=== PATIENT | female | born 1970 | race Caucasian/White ===

== ENCOUNTER 2019-11-24 16:09 | Outpatient (REF) | payer OTHER, SELFPAY ==
[2019-11-27 16:56] LABS: IgA 269 mg/dL (47-310); IgG 1003 mg/dL (600-1640); IgM 81 mg/dL (50-300)
== END 2019-11-24 16:10 | disposition home or self-care (01) ==
LOC: HO.LAB 16:09
PROVIDERS: PCP Internal Medicine; Visit Provider Psychiatry & Neurology Neurology
DX: G62.9 Polyneuropathy, unspecified (principal)
CPT/HCPCS: 36415; 82784; 86334

== ENCOUNTER 2020-12-02 12:31 | Outpatient (REF) | payer OTHER, SELFPAY ==
[2020-12-02 14:02] LABS: MANUAL DIFF FLAG NO
[2020-12-02 14:04] LABS: Hematocrit 40.7 % (37-47); Imm Gran Abs Auto 0.02 X10*3/uL (0.00-0.03); Imm Gran Pct Auto 0.3 % (0.0-0.4); Lymphocytes Absolute Auto 1.9 X10*3/uL (1.2-4.9); Lymphocytes Percent Auto 31.6 % (20-40); Mean Corpuscular HGB Conc 31.9 g/dl (31.0-35.0); Mean Corpuscular Volume 90.8 fL (80-98); Mean Platelet Volume 9.7 fL (9.4-12.3); Monocytes Absolute Auto 0.4 X10*3/uL (0.1-1.2); Monocytes Percent Auto 7.1 % (2-11); Neutrophils Absolute Auto 3.6 X10*3/uL (2.0-8.3); Platelet Count 336 X10*3/uL (160-400); Red Blood Count 4.48 X10*6/uL (4.20-5.50); Red Cell Distribution Width 13.1 % (11.0-16.0); White Blood Count 5.9 X10*3/uL (4.8-10.8)
[2020-12-02 14:11] LABS: Estimated Average Glucose 117 mg/dL; Hemoglobin A1c % 5.7 %
[2020-12-02 14:17] LABS: Appearance Urine CLEAR; Color Urine YELLOW; Glucose Urine UA 100 MG/DL (NEG); Leukocyte Esterase Urine NEG (NEG); Nitrite Urine NEG (NEG); Specific Gravity - Urine 1.015 (1.005-1.025); Urine Blood NEG (NEG); Urine Ketones NEG (NEG); Urine Protein NEG (NEG-TRACE)
[2020-12-02 14:40] LABS: Alanine Aminotransferase 10 U/L (0-31); Albumin Level 4.2 g/dL (3.5-5.0); Alkaline Phosphatase 107 U/L (39-117); Anion Gap 14 (12-20); Aspartate Amino Transferase 18 U/L (5-31); Bilirubin Total 0.4 mg/dL (0.0-1.0); Blood Urea Nitrogen 10 mg/dL (9-16); Calcium 8.9 mg/dL (8.4-10.2); Carbon Dioxide 26 mmol/L (22-29); Chloride 106 mmol/L (96-108); Cholesterol 180 mg/dL; Estimated Glomerular Filt Rate > 60; Glucose Random 82 mg/dL (60-115); Potassium 4.9 mmol/L (3.3-5.1); Sodium 141 mmol/L (135-145)
[2020-12-02 14:47] LABS: Creatinine Urine 40.73 mg/dL; Microalbum/Creatinine Ratio Ur 68.7 ug/mg cr
[2020-12-02 15:03] LABS: Free T4 (Free Thyroxine) 1.13 ng/dL (0.71-1.85); Thyroid Stimulating Hormone 1.61 uIU/mL (0.32-4.0)
== END 2020-12-02 12:32 | disposition home or self-care (01) ==
LOC: HO.10HDL 12:31
PROVIDERS: Visit Provider Internal Medicine
DX: E03.9 Hypothyroidism, unspecified (principal); E11.9 Type 2 diabetes mellitus without complications; R30.0 Dysuria
CPT/HCPCS: 36415; 80053; 81003; 82043; 82465; 83036; 84439; 84443; 85025; 87086; 87088; 87186

== ENCOUNTER 2021-04-14 10:42 | Outpatient (REF) | payer OTHER, SELFPAY ==
[2021-04-14 13:45] LABS: MANUAL DIFF FLAG NO
[2021-04-14 14:11] LABS: Hematocrit 38.1 % (37.0-47.0); Hemoglobin 12.2 g/dl (12.0-16.0); Imm Gran Abs Auto 0.01 X10*3/uL (0.00-0.03); Imm Gran Pct Auto 0.2 % (0.0-0.4); Lymphocytes Absolute Auto 1.5 X10*3/uL (1.2-4.9); Lymphocytes Percent Auto 30.1 % (20-40); Mean Corpuscular Hemoglobin 28.8 pg (27.0-33.0); Mean Corpuscular Volume 89.9 fL (80.0-98.0); Mean Platelet Volume 9.8 fL (9.4-12.3); Monocytes Absolute Auto 0.4 X10*3/uL (0.1-1.2); Monocytes Percent Auto 7.7 % (2-11); Neutrophils Absolute Auto 3.1 x10*3/uL (2.0-8.3); Platelet Count 400 X10*3/uL (160-400); Red Blood Count 4.24 X10*6/uL (4.20-5.50); Red Cell Distribution Width 13.2 % (11.0-16.0)
[2021-04-14 14:18] LABS: C Reactive Protein 0.32 mg/dL (< or = 0.50); Rheumatoid Factor < 15.0 IU/mL (<15.0)
[2021-04-14 14:39] LABS: Vitamin D 25-OH Total 43.8 ng/mL (>30)
[2021-04-14 14:53] LABS: Folate 15.7 ng/mL (> or = 4.0)
[2021-04-14 15:02] LABS: Erythrocyte Sedimentation Rate 9 MM/HR (0-20)
[2021-04-15 12:52] LABS: Anti Nuclear Antibody Screen NEGATIVE (NEGATIVE)
== END 2021-04-14 10:43 | disposition home or self-care (01) ==
LOC: HO.10HDL 10:42
PROVIDERS: Visit Provider Internal Medicine
DX: E11.9 Type 2 diabetes mellitus without complications (principal); E06.9 Thyroiditis, unspecified; M25.50 Pain in unspecified joint
CPT/HCPCS: 36415; 82306; 82550; 82746; 85025; 85652; 86038; 86039; 86140; 86431; 87071; 87205

== ENCOUNTER 2021-04-20 09:53 | Outpatient (REF) | payer OTHER, SELFPAY ==
[2021-04-20 11:25] LABS: Vitamin B12 > 2000 pg/mL (200-900)
[2021-04-20 11:26] LABS: Free T4 (Free Thyroxine) 1.23 ng/dL (0.71-1.85); Thyroid Stimulating Hormone 1.39 uIU/mL (0.32-4.0)
[2021-04-21 06:46] LABS: Triiodothyronine T3 Free 3.1 pg/mL (2.3-4.2)
== END 2021-04-20 09:54 | disposition home or self-care (01) ==
LOC: HO.10HDL 09:53
PROVIDERS: PCP Internal Medicine; Visit Provider Internal Medicine
DX: R53.83 Other fatigue (principal); E11.9 Type 2 diabetes mellitus without complications; M79.10 Myalgia, unspecified site
CPT/HCPCS: 36415; 82607; 84439; 84443; 84481

== ENCOUNTER → 2021-05-05 12:39 | Outpatient (BNVA) | payer OTHER, SELFPAY | PROVIDERS: PCP Internal Medicine; Visit Provider Surgery | DX: Z13.89 Encounter for screening for other disorder (principal) ==

== ENCOUNTER 2021-05-12 10:04 | Outpatient (REF) | payer OTHER, SELFPAY | END 2021-05-12 10:05 | disposition home or self-care (01) | LOC: HO.LAB 10:04 | PROVIDERS: PCP Internal Medicine; Referring Provider Internal Medicine; Visit Provider Surgery | DX: L72.0 Epidermal cyst (principal) | CPT/HCPCS: 11402; 88304 ==

== ENCOUNTER → 2021-05-19 11:00 | Outpatient (BNVA) | payer OTHER, SELFPAY | PROVIDERS: PCP Internal Medicine; Visit Provider Surgery | DX: Z13.89 Encounter for screening for other disorder (principal) ==

== ENCOUNTER 2022-12-14 10:32 | Outpatient (REF) | payer OTHER, SELFPAY ==
[2022-12-14 10:52] LABS: MANUAL DIFF FLAG NO
[2022-12-14 10:57] LABS: Hematocrit 40.4 % (37.0-47.0); Imm Gran Abs Auto 0.01 X10*3/uL (0.00-0.03); Imm Gran Pct Auto 0.2 % (0.0-0.4); Lymphocytes Absolute Auto 1.7 X10*3/uL (1.2-4.9); Lymphocytes Percent Auto 26.9 % (20-40); Mean Corpuscular HGB Conc 32.2 g/dl (31.0-35.0); Mean Corpuscular Hemoglobin 28.2 pg (27.0-33.0); Mean Corpuscular Volume 87.6 fL (80.0-98.0); Mean Platelet Volume 8.9 fL (9.4-12.3); Monocytes Absolute Auto 0.5 X10*3/uL (0.1-1.2); Monocytes Percent Auto 8.4 % (2-11); Neutrophils Absolute Auto 4.1 x10*3/uL (2.0-8.3); Neutrophils Percent Auto 64.5 % (45-73); Platelet Count 357 X10*3/uL (160-400); Red Blood Count 4.61 X10*6/uL (4.20-5.50); Red Cell Distribution Width 13.5 % (11.0-16.0); White Blood Count 6.4 X10*3/uL (4.8-10.8)
[2022-12-14 11:59] LABS: Alanine Aminotransferase 11 U/L (0-31); Albumin Level 4.2 g/dL (3.5-5.0); Alkaline Phosphatase 115 U/L (39-117); Anion Gap 11 (12-20); Aspartate Amino Transferase 16 U/L (5-31); Bilirubin Total 0.3 mg/dL (0.0-1.0); Blood Urea Nitrogen 14 mg/dL (9-16); Calcium 9.1 mg/dL (8.4-10.2); Carbon Dioxide 29 mmol/L (22-29); Chloride 105 mmol/L (96-108); Estimated Glomerular Filt Rate > 60; Glucose Random 172 mg/dL (60-115); Potassium 4.6 mmol/L (3.3-5.1); Sodium 140 mmol/L (135-145); Total Protein 7.5 g/dL (6.5-8.0)
== END 2022-12-14 10:33 | disposition home or self-care (01) ==
LOC: HO.10HDL 10:32
PROVIDERS: Visit Provider Internal Medicine
DX: E11.9 Type 2 diabetes mellitus without complications (principal); E03.9 Hypothyroidism, unspecified; Z79.4 Long term (current) use of insulin
CPT/HCPCS: 36415; 80053; 85025

== ENCOUNTER 2024-06-13 15:40 | Outpatient (AMB) | payer OTHER, SELFPAY ==
--- NOTE | 2024-06-13 13:07 | A.OFFPC_ITS ---
Vital Signs 06/13/24 16:14 Height 5 ft Weight 78.925 kg BMI 34.0 BP 110/82 Respiration 16 Pulse 92 Temp 99.0 F Temp Source Oral Pulse Oximetry (%) 96 Oxygen Delivery Method Room Air Intake Visit Reasons: Routine - see comments Educational Audiologist Required: No Accompanied by: Self / Same As Patient Allergies lisinopril Allergy (Intermediate, Verified 06/13/24 16:15) Swelling penicillin V Allergy (Unknown, Verified 06/13/24 16:11) Unknown Penicillins [PENICILLINS] Allergy (Unknown, Verified 06/13/24 16:11) RASH Sulfa (Sulfonamide Antibiotics) [SULFA(SULFONAMIDE ANTIBIOTICS)] Allergy (Unknown, Verified 06/13/24 16:11) NAUSEA AND VOMITING sulfur Allergy (Unknown, Verified 06/13/24 16:11) Unknown Tobacco use date assessed: 06/13/24 Dental Screening Dental Screen Date: 06/13/24 Did you have a dental visit in the last 12 months?: Yes Did you have a dental problem in the last 6 months where you did not have access to dental care?: No Was dental information given to patient?: Patient has dentist HPI HPI Comments History of Present Illness Details 53-year-old female with history of type 1 diabetes, hypothyroidism, vitamin B12 deficiency presents to the office today for routine follow-up. She follows with [facility] [place] [facility] and reports last hemoglobin A1c was 7.9%. She does utilize an insulin pump. Diabetic eye exams are up-to-date. 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 She is reporting polyarthralgia which has been longstanding, particularly in the wrists, hips knees. She also tells me that her daughter has been quite sick and she needs [facility] paperwork filled out intermittently for juan rock's appointments. Reportedly, her daughter had a labral tear in her hip requiring surgical intervention and developed bilateral DVT of the lower extremities and pulmonary embolism following the surgery. She then had multiple syncopal episodes and as a result has frequent doctor's appointments. She has no other complaints today. [facility] Medical History (Updated 06/13/24 @ 16:56 by KENDALL Holder) Type 1 diabetes Hypothyroidism Epidermal cyst Hypertension Surgical History H/O wrist surgery H/O section Family History (Updated 06/13/24 @ 16:21 by DARLENE Ortiz) Mother Thyroid disease Father No problems noted. Social History Housing: House Alcohol intake: current Patient Tobacco Use Status: Never used Tobacco service: No Current occupational status: employed Cognitive needs: No Hearing needs: No Vision needs: Yes (Rx glasses) Questionnaire PHQ-9 Over the last 2 weeks, how often have you been bothered by any of the following problems? 1. Little interest or pleasure in doing things: not at all 2. Feeling down, depressed, or hopeless: several days 3. Trouble falling or staying asleep, or sleeping too much: nearly every day 4. Feeling tired or having little energy: nearly every day 5. Poor appetite or overeating: not at all 6. Feeling bad about yourself - or that you are a failure or have let yourself or your family down: several days 7. Trouble concentrating on things, such as reading the newspaper or watching television: several days 8. Moving or speaking so slowly that other people could have noticed. Or the opposite - being so fidgety or restless that you have been moving around a lot more than usual: not at all 9. Thoughts that you would be better off or of hurting yourself in some way: not at all Total score: 9 Source: Developed by Drs. Tony Wilder, Noemy Olivares, Mario Alberto Whipple and colleagues, with an educational flor from [employer]. Thrive Questionnaire Date Thrive assessed: 06/13/24 I am a: Patient What is your living situation today?: I have a place to live, but I am worried about losing it in the future Within the past 12 months, did the food you bought not last and you didn't have the money to get more?: Never true Within the past 12 months, did you worry whether your food would run out before you got money to buy more?: Never true Do you have trouble paying for medicines?: No Do you have trouble getting transportation to medical appointments?: No Do you have trouble paying your heating and electricity bill?: No Do you have trouble taking care of your child, family member or friend?: No Do you have trouble with day-to-day activities such as bathing, preparing meals, shopping, managing finances, etc.?: No Are you currently unemployed and looking for a job?: No Are you interested in more education?: No Please select the resources that you would like help with: None THRIVE Score: 1 AUDIT C Alcohol Use Questionnaire (AUDIT-C) 1. How often do you have a drink containing alcohol?: Never Total Score: 0 HOLLIE-7 AMB Questionnaire HOLLIE-7 Date HOLLIE - 7 assessed: 06/13/24 Feeling nervous, anxious, or on edge: 3 = Nearly every day Not being able to stop or control worryin = Nearly every day Worrying too much about different things: 3 = Nearly every day Trouble relaxin = Nearly every day Being so restless that it is hard to sit still: 3 = Nearly every day Becoming easily annoyed or irritable: 3 = Nearly every day Feeling afraid as if something awful might happen: 3 = Nearly every day Total HOLLIE-7 score (0-4 normal; 5-9 mild; 10-14 moderate; 15-21 severe): 21 Source: Developed by Drs. Tony Wilder, Noemy Olivares, Mario Alberto Whipple and colleagues, with an educational flor from [employer]. Review of Systems Const All systems reviewed & are unremarkable except as noted in HPI and below Physical exam (Primary Care) Vital Signs: Last Vital Signs Temp 99.0 F 06/13/24 16:14 Pulse 92 06/13/24 16:14 Resp 16 06/13/24 16:14 BP 110/82 06/13/24 16:14 Pulse Ox 96 06/13/24 16:14 Oxygen Delivery Method Room Air 06/13/24 16:14 BMI result Body Mass Index 34.0 Tobacco/Smoking Status: Tobacco use Status Tobacco use date assessed 06/13/24 06/13/24 16:23 Patient Tobacco Use Status Never used Tobacco 06/13/24 16:23 PHQ-9: PHQ-9 Score PHQ-9: Total score 9 06/13/24 16:37 Thrive Assessment: Date of Thrive Assessment Date Thrive assessed 06/13/24 06/13/24 16:23 Const Other: Constitutional - Awake and Alert, No apparent distress Eyes - PERRL Cardiovascular - S1S2, RRR, No edema Respiratory - Normal lung expansion, Normal respiratory effort, No respiratory distress, CTA bilaterally Extremities - no calf tenderness bilaterally, no swelling Skin - Warm/Dry Neurological - Alert & oriented x3 Psychological - tearful Coding Level of Care Code New Pt Level 4 (44388) Complex EM visit Add On G2211 Diagnoses Hypertension I10 Hypothyroidism E03.9 Type 1 diabetes E10.9 Polyarthralgia M25.50 Assessment & Plan Assessment & Plan (1) Hypertension: Code(s): I10 - Essential (primary) hypertension Category: Medical Plan: Hypertension controlled with blood pressure 110/82. No longer on antihypertensive therapy. Continue low-sodium diet. (2) Hypothyroidism: Code(s): E03.9 - Hypothyroidism, unspecified Category: Medical Plan: TSH ordered. Continue levothyroxine 50 mcg daily. Follow-up with endocrinology as scheduled. (3) Type 1 diabetes: Code(s): E10.9 - Type 1 diabetes mellitus without complications Category: Medical Plan: Last hemoglobin A1c 7.9%, uncontrolled. Updated hemoglobin A1c ordered. Continue use of insulin pump and follow-up with endocrinology as scheduled. Diabetic eye exam up-to-date. Continue with diabetic diet. (4) Polyarthralgia: Code(s): M25.50 - Pain in unspecified joint Category: Medical Plan: Given history of type 1 diabetes, she is predisposed to additional autoimmune conditions. TORITO, rheumatoid factor, CRP, ESR ordered. She is referred to rheumatology for further evaluation and management. Continue Tylenol ibuprofen. Plan Follow-up in 4 months. Follow-up with endocrinology. Labs ordered to be completed today. Orders: Orders Basic Metabolic Panel Today E03.9 - Hypothyroidism, unspecified, E11.9 - Type 2 diabetes mellitus without complications, I10 - Essential (primary) hypertension Hemoglobin A1c Today E03.9 - Hypothyroidism, unspecified, E11.9 - Type 2 diabetes mellitus without complications, I10 - Essential (primary) hypertension TSH reflex Free T4 Today E03.9 - Hypothyroidism, unspecified, E11.9 - Type 2 diabetes mellitus without complications, I10 - Essential (primary) hypertension Vitamin B12 Today E53.8 - Deficiency of other specified B group vitamins Rheumatoid Factor Today M25.50 - Pain in unspecified joint C Reactive Protein Today M25.50 - Pain in unspecified joint Complete Blood Count Auto Diff Today E03.9 - Hypothyroidism, unspecified, E11.9 - Type 2 diabetes mellitus without complications, I10 - Essential (primary) hypertension Lipid Panel Today E03.9 - Hypothyroidism, unspecified, E11.9 - Type 2 diabetes mellitus without complications, I10 - Essential (primary) hypertension TORITO Reflex Titer and Pattern Today M25.50 - Pain in unspecified joint Erythrocyte Sedimentation Rate Today M25.50 - Pain in unspecified joint Referrals Rheumatology Referral M25.50 - Pain in unspecified joint
[2024-06-13 16:14] VITALS: BP 110/82; PULSE 92; RESP 16; TEMP 37.2; O2SAT 96; BMI 34.0
== END 2024-06-13 16:52 | disposition home or self-care (01) ==
LOC: HO.HMCHD 15:40
PROVIDERS: PCP Physician Assistant; Visit Provider Physician Assistant
DX: I10 Essential (primary) hypertension (principal); E03.9 Hypothyroidism, unspecified; E10.9 Type 1 diabetes mellitus without complications; M25.50 Pain in unspecified joint

== ENCOUNTER 2024-07-22 12:32 | Outpatient (REF) | payer OTHER, SELFPAY ==
[2024-07-22 13:12] LABS: MANUAL DIFF FLAG NO
[2024-07-22 13:15] LABS: Hematocrit 35.1 % (37.0-47.0); Imm Gran Abs Auto 0.03 X10*3/uL (0.00-0.03); Imm Gran Pct Auto 0.5 % (0.0-0.4); Lymphocytes Absolute Auto 1.8 X10*3/uL (1.2-4.9); Lymphocytes Percent Auto 29.1 % (20-40); Mean Corpuscular HGB Conc 31.3 g/dl (31.0-35.0); Mean Corpuscular Hemoglobin 26.6 pg (27.0-33.0); Monocytes Absolute Auto 0.4 X10*3/uL (0.1-1.2); Monocytes Percent Auto 6.3 % (2-11); Neutrophils Absolute Auto 3.9 x10*3/uL (2.0-8.3); Neutrophils Percent Auto 64.1 % (45-73); Platelet Count 384 X10*3/uL (160-400); Red Blood Count 4.13 X10*6/uL (4.20-5.50); Red Cell Distribution Width 14.6 % (11.0-16.0)
[2024-07-22 13:22] LABS: Estimated Average Glucose 174 mg/dL; Hemoglobin A1c % 7.7 % (<6.0); Total Hemoglobin (HGBA1C) 2897.7965 umol/L
[2024-07-22 13:38] LABS: Rheumatoid Factor < 13.0 IU/mL (<15.0)
[2024-07-22 13:42] LABS: Anion Gap 11 (12-20); Blood Urea Nitrogen 16 mg/dL (9-16); C Reactive Protein 0.58 mg/dL (< or = 0.50); Carbon Dioxide 26 mmol/L (22-29); Chloride 106 mmol/L (96-108); Cholesterol 190 mg/dL (<200); Estimated Glomerular Filt Rate > 60; Glucose Random 304 mg/dL (60-115); HDL Cholesterol 84 mg/dL (>40); LDL Cholesterol Calculated 91 mg/dL (<100); Potassium 4.2 mmol/L (3.3-5.1); Sodium 139 mmol/L (135-145); Triglycerides 75 mg/dL (<150)
[2024-07-22 13:50] LABS: Vitamin B12 1232 pg/mL (200-900)
[2024-07-22 13:53] LABS: Erythrocyte Sedimentation Rate 16 MM/HR (0-20); TSH reflex Free T4 2.13 uIU/mL (0.32-4.0)
--- OUTSIDE RECORDS SUMMARY | 2024-07-22 14:10 | XMS_ITS | Patient Health Record ---
Author Organization [facility] Address [address] [place] [address] Care Team Providers Care Director Of Global Marketing Name Role Phone Ray Yoder MD Primary Care Provider Jeanette Jenny Casarez Unavailable [phone] Allergies Allergen (clinical drug ingredient) Drug/Non Drug Allergy documented on EMR Reaction Allergy Type Onset Date Status sulfa rash Drug Allergy Active Penicillin rash Drug Allergy Active Reason For Referral No Information Medications Medication SIG (Take, Route, Fr equency, Duration) Notes Start Date End Date Status Calcium 600 MG 1 tablet with meals Orally Twice a day for 30 day(s) Active ZyrTEC Allergy 10 MG 1 tablet Orally Onc e a day for 30 day(s) Active Ogestrel 0.5-50 MG-MCG 1 tablet Orally O nce a day for 28 day(s) Active predniSONE 1MG 1 tablet with food o r milk Orally Once a day for 30 day(s) Active Feldene 20 MG 1 capsule with food Orally Once a day for 30 day(s) 06/21/2011 Active Physical Therapy 3-4x per week for 3-4 weeks 10/29 Active Benadryl 25 MG 1 capsule Orally every 6 hrs Active Problems Problem Type SNOMED Code ICD Code Onset Dates Problem Status W/U Status Risk Notes Problem Bursitis (84031039) Bursitis (727.3) Active confirmed Problem Myositis (62750530) Myositis (729.1) Active confirmed Problem Pain in limb (78796256) Pain in Limb (729.5) Active confirmed Problem Plantar fasciitis (221526211) Plantar Fasciitis (728.71) Active confirmed Problem Calcaneal spur (28103603) Calcaneal spur (726.73) Active confirmed Plan Of Treatment Pending Test Test Name Order Date ,[id number] TENDON SHEATH/LIGAMENT 0 08/01/2011,[id number] TENDON SHEATH/LIGAMENT 0 08/16/2011 [id number] 3mg 08/16/2011 Insurance Providers Payer Name Payer Address Payer Phone Subscriber Number Group Number Insured Name Patient Relationship to Insured Coverage Start Date Coverage End Date [facility] [address] [place] [address] [id number]IN Spouse - patient is the spouse of the insured Medical (General) History Medical History History ICD Code broken bones thyroid disorder chicken pox Surgical History Surgery Date(Month/Year) section 07/2000
[2024-07-24 11:49] LABS: Anti Nuclear Antibody Screen NEGATIVE (NEGATIVE)
== END 2024-07-22 12:33 | disposition home or self-care (01) ==
LOC: HO.10HDL 12:32
PROVIDERS: Visit Provider Physician Assistant
DX: M25.50 Pain in unspecified joint (principal)
CPT/HCPCS: 36415; 80048; 80061; 82607; 83036; 84443; 85025; 85652; 86038; 86140; 86431

== ENCOUNTER 2024-09-20 06:54 | Emergency (ER) | payer OTHER, SELFPAY ==
--- NOTE | ~2024-09-20 | CT_ITS ---
CLINICAL HISTORY: right hip injury CT pelvis without IV contrast. 3D reconstructions Comparison: CR - XR HIP RT W PEL1V - 09/20/24 07:58 EDT Findings: Anterior and posterior acetabular hodgson demonstrated no fractures. Anterior and posterior acetabular columns are intact. Bilateral hips remain congruent with no evidence of marginal impaction or intra-articular bone fragments. No femoral head, neck, trochanteric or proximal shaft fractures. No pelvic avulsion fractures/apophysitis. Pubic rami are intact. No diastases of the symphysis pubis. No sacral fractures. Normal sacroiliac joints. Sacrococcygeal joint is intact. Soft tissue pelvis:No pelvic hematoma/free fluid. Normal distention of the urinary bladder No iliopsoas/greater trochanteric bursitis. Fascial planes are preserved. No foreign body is demonstrated. Impression: 1. No pelvic fractures are demonstrated. Normal congruence of the femoroacetabular joints. No hip fractures. 2. No pelvic hematoma or free fluid. This document has been electronically signed by: Rodrigo Limon MD on 09/20/2024 11:51:11
--- NOTE | ~2024-09-20 | XR_ITS ---
CLINICAL HISTORY: right hip trauma,pain 2 views right hip. Single AP pelvis. Comparison: None Findings: No fractures, subluxations or dislocations. Normal congruency of the hip joint. SI joints pubic rami and symphysis pubis intact. No bony arthritic changes. Bone mineralization and soft tissues within normal limits. No radiopaque foreign body. Impression: 1. Normal right hip This document has been electronically signed by: Rodrigo Limon MD on 09/20/2024 08:25:48
[2024-09-20 07:00] VITALS: BP 156/98; PULSE 102; O2SAT 98
[2024-09-20 07:01] VITALS: BP 127/77; PULSE 99; RESP 19; TEMP 36.2; O2SAT 95; BMI 32.2
[2024-09-20 07:14] VITALS: BP 127/77; PULSE 99; RESP 19; TEMP 36.2; O2SAT 95
--- NOTE | 2024-09-20 07:26 | PC.NURSE ---
Pt with no visible injuries noted or reported at this time; pt actively experiencing R upper leg spasms radiating into R groin; +CMS/ROM both LE's; +DP pulses bilaterally with brisk cap refill both feet; pt denies numbness in leg or any incontinence/saddle paresthesias at this time; awaiting provider for orders
--- NOTE | 2024-09-20 08:07 | ED_ITS ---
HPI - Fall General Chief Complaint: Fall Stated Complaint: PAIN/SPASM DOWN R HIP TO KNEE S/P FALL 3-4 W AGO Time Seen by Provider: 09/20/24 07:16 Source: patient, family (daughter) and EMS Mode of arrival: EMS Limitations: no limitations History of Present Illness ED Provider: HPI Narrative: 53-year-old woman who fell 4 weeks ago, when to [facility] has had unremarkable hip x-ray, seen orthopedic providers this upcoming Sunday. Has been using muscle relaxants and Advil, reports pain spasms have been increasing, she states that she has fell and had a hard time getting off the floor today. Her daughter is at bedside as well and states that she lives with her and patient has been ambulating with a walker. No fevers or chills no numbness in the groin no numbness in the lower extremities no abdominal pain reported. Related Data Home Medications ?Medication ?Instructions ?Recorded ?Confirmed cetirizine 10 mg capsule (Zyrtec) 10 mg PO DAILY PRN 0 05/05/21 05/19/21 cholecalciferol (vitamin D3) 50 50 mcg PO DAILY 05/19/21 mcg (2,000 unit) capsule cyanocobalamin (vitamin B-12) 3,000 mcg PO DAILY 05/0505/19/21 3,000 mcg capsule insulin lispro 100 unit/mL subcut 05/05/21 05/19/21 subcutaneous solution (Humalog U-100 Insulin) levothyroxine 50 mcg capsule 50 mcg PO DAILY 05/05/21 05/19/21 (Tirosint) magnesium oxide 400 mg PO DAILY 05/05/21 Previous Rx's ?Medication ?Instructions ?Recorded oxycodone 5 mg tablet 5 mg PO Q6H PRN pain #10 tab s 09/20/24 Allergies Allergy/AdvReac Type Severity Reaction Status Date / Time lisinopril Allergy Intermediate Swelling Verified 09/20/24 07:10 penicillin V Allergy Unknown Unknown Verified 09/20/24 07:10 Penicillins (PENICILLINS) Allergy Unknown RASH Verified 09/20/24 07:10 Sulfa (Sulfonamide Allergy Unknown NAUSEA AND Verified 09/20/24 07:10 Antibiotics) VOMITING (SULFA(SULFONAMIDE ANTIBIOTICS)) sulfur Allergy Unknown Unknown Verified 09/20/24 07:10 Review of Systems Constitutional: Constitutional: Reports as per [facility] Past Medical History Medical History (Updated 09/20/24 @ 08:37 by Hema Colindres DO) Type 1 diabetes Hypothyroidism Epidermal cyst Hypertension Surgical History H/O wrist surgery H/O section Family History Family History (Updated 06/13/24 @ 16:21 by DARLENE Ortiz) Mother Thyroid disease Father No problems noted. Social History Social History Housing: House Alcohol intake: current Patient Tobacco Use Status: Never used Tobacco service: No Current occupational status: employed Cognitive needs: No Hearing needs: No Vision needs: Yes (Rx glasses) Physical Exam Vital Signs: Vital Signs: Last Vital Signs Temp 97.1 F 09/20/24 07:14 Pulse 99 09/20/24 07:14 Resp 19 09/20/24 07:14 BP 127/77 09/20/24 07:14 Pulse Ox 95 09/20/24 07:14 O2 Del Method Room Air 09/20/24 07:01 BMI result Body Mass Index 32.2 Const: Other: * Gen: ?Overall well-appearing patient * Abd: ?Bowel sounds are present, no tenderness no rebound no rigidity * MSK: No tenderness along her back cervical to sacral, no paraspinal or midline tenderness, no SI tenderness, pelvis is stable, no tenderness along her ITB or greater trochanter, full range of motion of the ankle and right knee, slight pain with internal rotation most of the discomfort is over anterior proximal hip flexors without hematoma, pulsatile masses, soft compartments. * Skin: Warm, dry, intact, * Neuro: ?Alert and oriented x3, moving upper and lower extremities symmetrically, no obvious facial asymmetry noted Medications Administered Discontinued Medications Generic Name Dose Route Start Last Admin Trade Name Freq PRN Reason Stop Dose Admin Ketorolac Tromethamine 15 mg 09/20/24 07:41 09/20/24 07:46 Ketorolac Tromethamine 15 Mg/Ml Vial IVPUSH 09/20/24 07:42 15 mg ONCE ONE Administration Morphine Sulfate 4 mg 09/20/24 07:41 09/20/24 07:46 Morphine Sulfate 4 Mg/Ml Cartridge IVPUSH 09/20/24 07:42 4 mg ONCE ONE Administration Protocol Medical Decision Making Medical Decision Making [facility] Narrative: Patient is presenting with now chronic worsening pain seen her orthopedic provider in the next few days, physical examination is largely reassuring without any neurovascular deficits to suspect that this is related to spinal cord compression or infectious etiology, there are no hematomas or pulsatile masses to suspect many ongoing bleeding, I believe patient we will require further workup on outpatient basis such as pelvis or hip MRI to evaluate for labral tear, strain, she will require physical therapy and possibly guided steroid injections, she is diabetic and I think spasm is not the primary issue here but actually pain, I will start her on some steroids though she is a diabetic and she does use a pump, and pain control we will be another issue I will start with oxycodone and discontinue muscle relaxants. Her daughters at bedside, and this has been discussed with the patient and her daughter see my discharge instructions. If after being medicated the patient is still not able to walk I we will obtain CT to evaluate for occult fractures though her x-rays are reassuring Differential Diagnosis Differential Diagnoses: The differential diagnosis associated with the presentation includes (Cauda equina, sciatica, labral tear, osteochondral defect, muscle strain, DVT, arterial insufficiency, called fracture) Admission/Observation Consideration of admission/observation: Escalation of care including admission/observation considered (Depending if patient passes ambulatory or trial) 2022 Emergency Medicine Coding Guide from [employer] on 09/20/2024 All calculations should be rechecked by clinician prior to use RESULT SUMMARY: 4 Estimated Level of Service Problems: Moderate (4) Risk: High (5) Data: Moderate (4) NARRATIVE MDM: This patient's problem complexity is Moderate as patient: has an acute complicated injury requiring significant evaluation or with concern for morbidity or multiple treatment options. This patient's risk is High due to: overall presentation requiring evaluation for a potentially High-risk process. This patient's data complexity is Moderate due to: -independent interpretation of imaging or EKG INPUTS: Number and Complexity ?> 7 = 4: acute, complicated injury (g) Risk level ?> 4 = High Tests ordered ?> 1 = 1 Tests results reviewed (excluding labs) ?> 1 = 1 Prior external notes reviewed ?> 0 = 0 Assessment requiring and independent historian ?> 0 = No Independent interpretation of tests ?> 1 = Yes Discussed management/test interpretation w/external professional ?> 0 = No Independent Interpretation I performed an independent interpretation of an: Plain X-Ray (No fractures no arthritic changes no foreign bodies) Radiology Impression Discussion of test interpretation with radiology: I have reviewed the radiologis t's reading. (Negative hip) Discharge Plan Discharge Clinical Impression: Hip pain, right Patient Disposition: Home, Self-Care Instructions: Hip Pain (ED) Additional Instructions: At this point I recommend against taking any muscle relaxants, I believe you are experiencing issues related to pain control, I started him on steroids in the ER, continue steroids as per him a prescription for the next 4 days In the meantime use Tylenol 975 mg every 6 hours around the clock as you would take any other regular medication, and oxycodone 5 mg every 4-6 hours for additional pain control I would like to make sure your icing the area as high up in the groin as you can, doing heat packs as well, gentle stretches and make sure that you were also ambulatory, see your orthopedic provider on Sunday I believe you need outpatient MRI and physical therapy as this is now becoming a chronic injury that is progressively getting worse, your repeat x-ray today was unremarkable. Of course you should feel free to come back to the ER if you have any worsening issues or concerns over the weekend Prescriptions: New oxycodone 5 mg tablet 5 mg PO Q6H PRN (Reason: pain) Qty: 10 0RF Rx Instructions: Partial Fill upon patient request. No Action levothyroxine [Tirosint] 50 mcg capsule 50 mcg PO DAILY insulin lispro [Humalog U-100 Insulin] 100 unit/mL solution subcut cyanocobalamin (vitamin B-12) 3,000 mcg capsule 3,000 mcg PO DAILY cholecalciferol (vitamin D3) 50 mcg (2,000 unit) capsule 50 mcg PO DAILY magnesium oxide 400 mg magnesium tablet 400 mg PO DAILY Zyrtec 10 mg capsule 10 mg PO DAILY PRN Print Language: Turkmen
--- OUTSIDE RECORDS SUMMARY | 2024-09-20 08:12 | XMS_ITS | Clinical Summary ---
Author Organization [facility] Address [address] [facility] [address] [place] [address] Phone Care Team Providers Care Rn Utilization Management Um Name Role Phone Ray Yoder MD Primary Care Provider Allergies Active Allergy Reactions Criticality Noted Date Comments Penicillins Rash Low 08/27/2018 Sulfa (Sulfonamide Antibiotics) Nausea and/or Vomiting 08/27/2018 Medications cetirizine (ZYRTEC) 10 MG tablet Take 10 mg by mouth daily. Active cyanocobalamin, vitamin B-12, (VITAMIN B-12 ORAL) Take 2 capsules by mouth daily. Active naproxen sodium (ALEVE) 220 MG tablet Take 440 mg by mouth nightly at bedtime. Active Hospital, Clinic, or Other Facility Administered Medication Ordered Dose Route Frequency Start Date End Date Status EPINEPHrine (ADRENALIN) injection 0.3 mgIndications:Patient in clinical research study 0.3 mg IM Once as needed 12/07/2020 Active diphenhydrAMINE (BENADRYL) injection 25-50 mgIndications:Patient in clinical research study 25 - 50 mg IV Once as needed 12/07/2020 Active hydrocortisone sodium succinate (PF) (Solu-CORTEF) injection 100 mgIndications:Patient in clinical research study 100 mg IV Once as needed 12/07/2020 Active acetaminophen (TYLENOL) tablet 325-650 mgIndications:Patient in clinical research study 325 - 650 mg Oral Once as needed 12/07/2020 Active Social History Tobacco Use Types Packs/Day Years Used Date Smoking Tobacco: Never Smokeless Tobacco: Never Education Answer Date Recorded Are you interested in more education? Not on camille e 06/02/2022 Are you concerned about learning? Not on file 06/02/2022 No 06/02/2022 No 06/02/2022 Digital Access Answer Date Recorded No 07/01/2022 No 07/01/2022 No 07/01/2022 Reliable internet access at home? Not on file 07/01/2022 Device with a working camera? Not on file Comments Unknown Sex and Gender Information Value Date Recorded Sex Assigned at Not on file Legal Sex Female 9:32 PM EDT Gender Identity Not on file Sexual Orientation Not on file Last Filed Vital Signs Vital Sign Reading Time Taken Comments Blood Pressure 102/74 08/27/2018 9:42 AM EDT Pulse 84 08/27/2018 9:42 AM EDT Temperature - - Respiratory Rate - - Oxygen Saturation - - Inhaled Oxygen Concentration - - Weight 77.7 kg (171 lb 6.4 oz) 08/27/2018 9:42 A M EDT Height 153 cm (5' 0.25 ) 08/27/2018 9:42 AM EDT Body Mass Index 33.2 08/27/2018 9:42 AM EDT Plan of Treatment Health Maintenance Due Date Last Done Comments Adult Td,Tdap Booster 1971 LIPID PANEL 1971 DEPRESSION SCREENING 1983 HEPATITIS C SCREENING 12/15/1989 HIV ONE-TIME SCREENING (18-6 5 YEARS) 12/15/1989 PAP SMEAR 12/15/1992 SMOKING STATUS SCREENING (On ce After 26 Yrs) 12/15/1997 MAMMOGRAM 2011 COLOGUARD 12/15/2016 COLONOSCOPY 12/15/2016 COLORECTAL CANCER SCREENING 12/15/2016 FIT TEST 12/15/2016 FOBT 12/15/2016 SIGMOIDOSCOPY 12/15/2016 VIRTUAL COLONOSCOPY 12/15/2016 PNEUMOCOCCAL VACCINES (50+ years) (1 of 1 - PCV) 12/15/2021 ZOSTER VACCINES (1 of 2) 12/15/2021 COVID-19 VACCINE (3 - 2023-2 5 season) 2023 05/17/2020, 04/19/2020 HEPATITIS A VACCINES Aged Out No long er eligible based on patient's age to complete this topic HIB VACCINES Aged Out No longer eligi ble based on patient's age to complete this topic MENINGOCOCCAL VACCINES (ACWY) Aged Out No longer eligible based on patient's age to complete this topic MENINGOCOCCAL VACCINES (B) Aged Out N o longer eligible based on patient's age to complete this topic Medical Devices Not on file Insurance O O [address] [place], [place] [id number] O Care Teams Rn Utilization Management Um Relationship Specialty Start Date End Date Ray Yoder MD [address] [place] [address] [place] [address] PCP - General Internal Medicine 08/27/18 Additional Source Comments The information contained in this document represents components of the legal health record. It is not the complete legal health record.[facility]
--- OUTSIDE RECORDS SUMMARY | 2024-09-20 08:12 | XMS_ITS | Patient Health Record ---
Author Organization [facility] Address [address] [place] [address] Care Team Providers Care Special Education Inclusion Teacher Name Role Phone Ray Yoder MD Primary Care Provider Jeanette Jenny Casarez Unavailable [phone] Allergies Allergen (clinical drug ingredient) Drug/Non Drug Allergy documented on EMR Reaction Allergy Type Onset Date Status sulfa rash Drug Allergy Active Penicillin rash Drug Allergy Active Reason For Referral No Information Medications Medication SIG (Take, Route, Fr equency, Duration) Notes Start Date End Date Status Calcium 600 MG 1 tablet with meals Orally Twice a day; Duration: 30 day(s) Active ZyrTEC Allergy 10 MG 1 tablet Orally Onc e a day; Duration: 30 day(s) Active Ogestrel 0.5-50 MG-MCG 1 tablet Orally O nce a day; Duration: 28 day(s) Active predniSONE 1MG 1 tablet with food o r milk Orally Once a day; Duration: 30 day(s) Active Feldene 20 MG 1 capsule with food Orally Once a day; Duration: 30 day(s) 06/21/2011 Active Physical Therapy 3-4x per week for 3-4 weeks 10/29 Active Benadryl 25 MG 1 capsule Orally every 6 hrs Active Problems Problem Type SNOMED Code ICD Code Onset Dates Problem Status W/U Status Risk Notes Problem Bursitis (26649797) Bursitis (727.3) Active confirmed Problem Myositis (34465488) Myositis (729.1) Active confirmed Problem Pain in limb (08306380) Pain in Limb (729.5) Active confirmed Problem Plantar fasciitis (853480761) Plantar Fasciitis (728.71) Active confirmed Problem Calcaneal spur (00234884) Calcaneal spur (726.73) Active confirmed Plan Of Treatment Pending Test Test Name Order Date ,[id number] TENDON SHEATH/LIGAMENT 0 08/01/2011,[id number] TENDON SHEATH/LIGAMENT 0 08/16/2011 [id number] 3mg 08/16/2011 Insurance Providers Payer Name Payer Address Payer Phone Subscriber Number Group Number Insured Name Patient Relationship to Insured Coverage Start Date Coverage End Date [facility] [address] [place] [address] [id number] Spouse - patient is the spouse of the insured Medical (General) History Medical History History ICD Code broken bones thyroid disorder chicken pox Surgical History Surgery Date(Month/Year) section 07/2000
[2024-09-20] MEDS: oxyCODONE HCl Immed Release 5 MG TABLET PO (08:36)
--- NOTE | 2024-09-20 09:46 | PC.NURSE ---
Pt still unable to flex R hip/leg without 10/10 spasm; pt tearful in room; family at bedside; provider made aware; pt to have CT scan
[2024-09-20 10:48] VITALS: BP 116/71; PULSE 87; RESP 14; O2SAT 96
--- NOTE | 2024-09-20 11:37 | PC.NURSE ---
Pt cont to have spasms with minimal movement of R leg; aware; physical therapy consult ordered
[2024-09-20 12:38] VITALS: BP 106/65; PULSE 78; RESP 14; TEMP 36.5; O2SAT 95
== END 2024-09-20 12:40 | disposition home or self-care (01) ==
PROVIDERS: Emergency Provider Emergency Medicine
DX: M25.551 Pain in right hip (principal); R25.2 Cramp and spasm; E10.9 Type 1 diabetes mellitus without complications; E03.9 Hypothyroidism, unspecified; I10 Essential (primary) hypertension; Z79.4 Long term (current) use of insulin; Z96.41 Presence of insulin pump (external) (internal)
CPT/HCPCS: 72192; 73502; 96374; 96375; 99284; J1885; J2270; J8540

== ENCOUNTER → 2024-09-20 07:41 | Outpatient (BNV) | payer OTHER, SELFPAY | PROVIDERS: Emergency Provider Emergency Medicine; Visit Provider Radiology Diagnostic Radiology | DX: S79.911A Unspecified injury of right hip, initial encounter (principal); M25.551 Pain in right hip | CPT/HCPCS: 72192; 73502 ==

== ENCOUNTER → 2024-10-03 15:21 | Outpatient (AMB) | payer OTHER, SELFPAY ==
--- OUTSIDE RECORDS SUMMARY | 2024-10-03 15:23 | XMS_ITS | Clinical Summary ---
Author Organization [facility] Address [address] [facility] [address] [place] [address] Phone Care Team Providers Care Hospital Monitor Name Role Phone Ray Yoder MD Primary [...] [address] [place], [place] [address]O O Care Teams Hospital Monitor Relationship Specialty Start Date End Date Ray Yoder MD [address] [place] [address] [place] [address] PCP - General Internal Medicine 08/27/18 Additional Source Comments The information contained in this document represents components of the legal health record. It is not the complete legal health record.[facility]
--- OUTSIDE RECORDS SUMMARY | 2024-10-03 15:23 | XMS_ITS | Patient Health Record ---
Author Organization [facility] Address [address] [place] [address] Care Team Providers Care Stereo Equipment Installer Name Role Phone Ray Yoder MD Primary Care Provider Jeanette Jenny Casarez Unavailable [phone] Allergies Allergen (clinical drug ingredient) Drug/Non Drug [...] Status W/U Status Risk Notes Problem Bursitis (23757935) Bursitis (727.3) Active confirmed Problem Myositis (05364789) Myositis (729.1) Active confirmed Problem Pain in limb (72327655) Pain in Limb (729.5) Active confirmed Problem Plantar fasciitis (191273372) Plantar Fasciitis (728.71) Active confirmed Problem Calcaneal spur (25714419) Calcaneal spur (726.73) Active confirmed Plan Of Treatment Pending Test Test Name Order Date ,[id number] TENDON SHEATH/LIGAMENT 0 08/01/2011,[id number] TENDON SHEATH/LIGAMENT 0 08/16/2011 [id number] 3mg 08/16/2011 Insurance Providers Payer Name Payer Address Payer Phone Subscriber Number Group Number Insured Name Patient Relationship to Insured Coverage Start Date Coverage End Date [facility] [address] [place] [address] [id number] Spouse - patient is the spouse of the insured Medical (General) History Medical History History ICD Code broken bones thyroid disorder chicken pox Surgical History Surgery Date(Month/Year) section 07/2000
--- NOTE | 2024-10-03 15:49 | A.OFFPC_ITS ---
Vital Signs 10/03/24 15:53 Height 5 ft BP 118/78 Pulse 97 Pulse Source Pulse Oximeter Temp 97.7 F Temp Source Temporal Artery Scan Pulse Oximetry (%) 98 Oxygen Delivery Method Room Air Intake Visit Reasons: Hip pain-ortho referral Senior Backup Administrator Required: No Accompanied by: Son Allergies lisinopril Allergy (Intermediate, Verified 10/03/24 15:51) Swelling penicillin V Allergy (Unknown, Verified 10/03/24 15:51) Unknown Penicillins (PENICILLINS) Allergy (Unknown, Verified 10/03/24 15:51) RASH Sulfa (Sulfonamide Antibiotics) (SULFA(SULFONAMIDE ANTIBIOTICS)) Allergy (Unknown, Verified 10/03/24 15:51) NAUSEA AND VOMITING sulfur Allergy (Unknown, Verified 10/03/24 15:51) Unknown Tobacco use date assessed: 06/13/24 Dental Screening Dental Screen Date: 06/13/24 HPI HPI Comments History of Present Illness Details 53-year-old female with history of type 1 diabetes, hypothyroidism, vitamin B12 deficiency presents to the office today for follow-up on an MRI and right hip pain. She sustained a mechanical fall on August 04 and slid down several stairs on her buttock. No head strike. She was able to get up and had been ambulatory. She began experiencing worsening pain and then presented to [facility] on August 04 as she was no longer able to ambulate following her vacation. Denies any additional injury. She did have MRI of the right hip performed on 09/26: 1. Right iliopsoas muscular strain with high-grade partial-thickness tear at the myotendinous junction, suspected full-thickness rupture of the iliacus myotendinous insertion and intact so as major tendon insertion onto the lesser trochanter 2. Mild right gluteus minimus tendinosis She was advised that she does need an arthroscopy of the right hip but was told that [facility] does not perform the surgeries anymore. She was then referred to [facility] as well as [facility] both of which do not accept her insurance. She is here today for further evaluation. She has been taking Dilaudid at bedtime as well as tizanidine twice daily which has been helping somewhat. She has needed to use a cane or walker for ambulation assistance and is here today and a transfer chair. She has been out of work using FMLA. 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 ROS: See HPI EXAM: Constitutional - Awake and Alert, No apparent distress. Seated in wheelchair Eyes - PERRL Cardiovascular - S1S2, RRR, No edema Respiratory - Normal lung expansion, Normal respiratory effort, No respiratory distress, CTA bilaterally Extremities - no calf tenderness bilaterally, no swelling Skin - Warm/Dry Neurological - Alert & oriented x3 Psychological - Appropriate affect PFSH Medical History (Updated 10/03/24 @ 17:17 by KENDALL Holder) Hyperopia Vitreous floaters Type 1 diabetes Hypothyroidism Epidermal cyst Hypertension Surgical History H/O wrist surgery H/O section Family History (Updated 06/13/24 @ 16:21 by DARLENE Ortiz) Mother Thyroid disease Father No problems noted. Social History Housing: House Alcohol intake: current Patient Tobacco Use Status: Never used Tobacco service: No Current occupational status: employed Cognitive needs: No Hearing needs: No Vision needs: Yes (Rx glasses) Questionnaire Thrive Questionnaire Date Thrive assessed: 06/13/24 HOLLIE-7 AMB Questionnaire HOLLIE-7 Date HOLLIE - 7 assessed: 06/13/24 Source: Developed by Drs. Tony Wilder, Noemy Olivares, Mario Alberto Whipple and colleagues, with an educational flor from [employer]. Physical exam (Primary Care) Vital Signs: Last Vital Signs Temp 97.7 F 10/03/24 15:53 Pulse 97 10/03/24 15:53 BP 118/78 10/03/24 15:53 Pulse Ox 98 10/03/24 15:53 Oxygen Delivery Method Room Air 10/03/24 15:53 Tobacco/Smoking Status: Tobacco use Status Tobacco use date assessed 06/13/24 10/03/24 15:50 Patient Tobacco Use Status Never used Tobacco 10/03/24 15:50 Thrive Assessment: Date of Thrive Assessment Date Thrive assessed 06/13/24 10/03/24 15:50 Coding Level of Care Code Est Pt Level 4 (15024) Complex EM visit Add On G2211 Diagnoses Tendinopathy involving hip M67.959 Rupture of tendon of hip S76.019A Assessment & Plan Assessment & Plan (1) Tendinopathy involving hip: Code(s): M67.959 - Unspecified disorder of synovium and tendon, unspecified thigh Category: Medical Plan: MRI of the right hip reviewed and discussed with patient. Given significance of pain and inability to ambulate, urgent referral placed to referral at [facility] for consideration of arthroscopy. Can continue using hydromorphone at bedtime or as ordered, tizanidine twice daily as needed, as well as ibuprofen 800 mg every 8 hours as needed. Recommend ice and rest (2) Rupture of tendon of hip: Code(s): S76.019A - Strain of muscle, fascia and tendon of unspecified hip, initial encounter Category: Medical Plan: MRI of the right hip reviewed and discussed with patient. Given significance of pain and inability to ambulate, urgent referral placed to referral at [facility] for consideration of arthroscopy. Pain management as above Plan Blood pressure in the office is controlled. She should continue current therapies. She will follow-up in the office as scheduled in 3 months with labs completed prior to visit Orders: Orders TSH reflex Free T4 10 Weeks E03.9 - Hypothyroidism, unspecified, E10.9 - Type 1 diabetes mellitus without complications, I10 - Essential (primary) hypertension Lipid Panel 10 Weeks E03.9 - Hypothyroidism, unspecified, E10.9 - Type 1 diabetes mellitus without complications, I10 - Essential (primary) hypertension Liver Panel 10 Weeks E03.9 - Hypothyroidism, unspecified, E10.9 - Type 1 diabetes mellitus without complications, I10 - Essential (primary) hypertension Basic Metabolic Panel 10 Weeks E03.9 - Hypothyroidism, unspecified, E10.9 - Type 1 diabetes mellitus without complications, I10 - Essential (primary) hypertension Hemoglobin A1c 10 Weeks E03.9 - Hypothyroidism, unspecified, E10.9 - Type 1 diabetes mellitus without complications, I10 - Essential (primary) hypertension Referrals Orthopedics Referral M67.959 - Unspecified disorder of synovium and tendon, unspecified thigh, S76.019A - Strain of muscle, fascia and tendon of unspecified hip, initial encounter Medications: New ibuprofen 800 mg PO Q8H PRN 90 tabs 0RF pain
[2024-10-03 15:53] VITALS: BP 118/78; PULSE 97; TEMP 36.5; O2SAT 98
== END ==
LOC: HO.HMCHD 15:21
PROVIDERS: Visit Provider Physician Assistant
DX: M67.959 Unspecified disorder of synovium and tendon, unspecified thigh (principal); S76.019A Strain of muscle, fascia and tendon of unspecified hip, initial encounter

== ENCOUNTER 2024-12-10 13:59 | Outpatient (AMB) | payer OTHER, SELFPAY ==
--- OUTSIDE RECORDS SUMMARY | 2024-12-10 09:45 | XMS_ITS | Encounter Summary ---
Author Organization [facility] Address [address] [place] [address] Phone Care Team Providers Care Bow Making Machine Operator Name Role Phone Ray Yoder MD Primary Care Provider Reason for Referral * Physical Therapy (Elective) - New Request Specialty Diagnoses / Procedures Referred By Contac t Referred To Contact Diagnoses Strain of right iliopsoas muscle, initial encounter Alyse Tobar MD [address] [place] [address] [facility] [place] [address] Phone: tel: fax: [email or web address] [address] [place] [address] Phone: tel: fax: Referral ID Status Reason Start Date Expiration Date V isits Requested Visits Authorized [id number] New Request 12/10/2024 12/10/2025 1 1 Reason for Visit * Reason Comments Established Patient R Hip Encounter Details Date Type Department Care Team (Late st Contact Info) Description 12/10/2024 9:45 AM EST Office Visit [facility] [address] [place] [address] Alyse Tobar MD [address] [place] [address] [facility], [place] [address] [email or web address] Strain of right iliopsoas muscle, initial encounter (Primary Dx); Pain Social History Tobacco Use Types Packs/Day Years [...] on file Sexual Orientation Not on file documented as of this encounter Progress Notes * Alyse Tobar MD - 12/10/2024 9:45 AM EST History of Present Illness Kassidy Linda is a 53 year old female who presents with ongoing weakness and mobility issues following a leg injury. Initially injured it when she fell down the stairs on August 04. She had delayed care and recently has started physical therapy about a month ago She experiences significant weakness, particularly when lifting her leg, affecting her ability to climb stairs. She sometimes catches her toe on stairs and has difficulty lifting her leg high enough.Despite attending physical therapy twice a week and feeling stronger, she remains nervous about walking on uneven surfaces and fears falling. She uses a cane for stability outdoors but not at home. She describes stiffness in her knee, with a sensation of locking and heaviness, especially when lifting it. She is working on stair exercises in physical therapy, but the non-standard size of stairs at her workplace presents an additional challenge. 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 Her workplace is not fully accessible, complicating her return to her position. On inspection her gait is somewhat stiff. Iliac crest height is symmetric. She has no pain and goodstrength with hip flexion with the knee extended. She has some weakness and minimal discomfort withhip flexion activation with the knee flexed. No tenderness over the iliopsoas. Imaging external MRI previously reviewed shows evidence of a partial iliopsoas tendon tear External PT notes reviewed Assessment and Plan Recovery from lower extremity tendon injury Four months post-injury with ongoing recovery. Reports soreness and weakness, especially in leg lifting. Difficulty with stairs, using a cane for stability. Anticipated improvement with continued therapy and gradual return to work with accommodations. - Continue physical therapy twice a week at [facility] in [place]. - Maintain current work restrictions, including no stairs. - Provided updated physical therapy script to checkout. - Scheduled follow-up appointment in four weeks. Pain related to lower extremity tendon injury Reports soreness but no significant pain. Pain not limiting activities. - Continue current management and monitor for changes in pain levels. documented in this encounter Plan of Treatment Upcoming Encounters Date Type Department Care Team (Late st Contact Info) Description 01/07/2025 9:30 AM EST Office Visit [facility] [address] [place] [phone] Alyse Tobar MD [address] [place] [address] [facility], [place] [address] [email or web address] Scheduled Referrals Name Type Priority Associated Diagnoses Order Schedule Ambulatory referral to External Physical Therapy Outpatient Referral Routine Strain of right iliopsoas muscle, initial encounter Ordered: 12/10/2024 documented as of this encounter Visit Diagnoses Diagnosis Strain of right iliopsoas muscle, initial encounter- Primary Pain Generalized pain documented in this encounter Care Teams Bow Making Machine Operator Relationship Specialty Start Date End Date Ray Yoder MD [address] [place] [address] [place] [address] PCP - General Internal Medicine 08/27/18 documented as of this encounter Additional Source Comments The information contained in this document represents components of the legal health record. It is not the complete legal health record.[facility]
--- NOTE | 2024-12-10 12:48 | MHC.PC.OV ---
Vital Signs 12/10/24 14:13 Height 4 ft 11.72 in Weight 78.925 kg BMI 34.3 BP 104/78 Blood Pressure Location Lt brachial Position Sitting Respiration 18 Pulse 96 Pulse Source Pulse Oximeter Temp 98 F Temp Source Temporal Artery Scan Pulse Oximetry (%) 98 Oxygen Delivery Method Room Air Intake Visit Reasons: 6 Month F/U - see comments Hole Filler Required: No Accompanied by: Self / Same As Patient Allergies lisinopril Allergy (Intermediate, Verified 12/10/24 12:48) Swelling penicillin V Allergy (Unknown, Verified 12/10/24 12:48) Unknown Penicillins (PENICILLINS) Allergy (Unknown, Verified 12/10/24 12:48) RASH Sulfa (Sulfonamide Antibiotics) (SULFA(SULFONAMIDE ANTIBIOTICS)) Allergy (Unknown, Verified 12/10/24 12:48) NAUSEA AND VOMITING sulfur Allergy (Unknown, Verified 12/10/24 12:48) Unknown Tobacco use date assessed: 06/13/24 Dental Screening Dental Screen Date: 06/13/24 HPI HPI Comments History of Present Illness Details 53-year-old female with history of type 1 diabetes, hypothyroidism, vitamin B12 deficiency presenting to the office for management of chronic conditions. Type 1 diabetes-following with [facility] endocrinology. Per her report, last A1c 7.3%, last resulted in our office as 7.7%. She utilizes a continuous glucose monitor as well as an insulin pump. Denies episodes of hypoglycemia. Reports average glucose levels around 200. She follows with Dr. Delgado in Ophthalmology and denies any known complications.She is compliant with diabetic diet overall though has had a lot of increased stress lately. Hypothyroidism- following with [facility] endocrinology. Last TSH 2.13. Compliant with levothyroxine 50 mcg daily Right hip s/p mechanical fall: MRI of the right hip 09/2021 MRI of the right hip performed on 09/26: 1. Right iliopsoas muscular strain with high-grade partial-thickness tear at the myotendinous junction, suspected full-thickness rupture of the iliacus myotendinous insertion and intact so as major tendon insertion onto the lesser trochanter 2. Mild right gluteus minimus tendinosis Initially was seen by [facility] who reported they no longer manage hip arthroscopies who was referred to [facility]. No surgical intervention was advised at that time. She has been undergoing extensive physical therapy with improvements in range of motion, gait, and pain levels. She does still use a cane to assist with ambulation or walker if needed for longer distances. She has been using diclofenac with good relief of symptoms. No longer requiring opioids. Given recommended restrictions from ortho, will not be returning to school for the remainder of the year as her school is not handicap accessible. Vitamin B12 deficiency-recent B12 level elevated at 12:00. Advised to discontinue supplement or reduce dose Polyarthralgia-still has pain in the shoulders, hands, elbows but has improved. Gabapentin has been helpful as well as diclofenac. Has upcoming appointment with Rheumatology Concerns: Ear pressure- recent URI. Flonase and antihistamine. No ear pain, fevers, chills, sinus pain, sore throat, hearing loss. Health maintenance: Schedule mammogram Last Pap with 5 year follow-up ROS: see hpi EXAM: Constitutional - Awake and Alert, No apparent distress Eyes - PERRL Cardiovascular - S1S2, RRR, No edema Respiratory - Normal lung expansion, Normal respiratory effort, No respiratory distress, CTA bilaterally Extremities - no calf tenderness bilaterally, no swelling Skin - Warm/Dry Neurological - Alert & oriented x3 Psychological - Appropriate affect PFSH Medical History (Updated 10/03/24 @ 17:17 by KENDALL Holder) Hyperopia Vitreous floaters Type 1 diabetes Hypothyroidism Epidermal cyst Hypertension Surgical History H/O wrist surgery H/O section Family History (Updated 06/13/24 @ 16:21 by DARLENE Ortiz) Mother Thyroid disease Father No problems noted. Social History Housing: House Alcohol intake: current Patient Tobacco Use Status: Never used Tobacco service: No Current occupational status: employed Cognitive needs: No Hearing needs: No Vision needs: Yes (Rx glasses) Questionnaire Thrive Questionnaire Date Thrive assessed: 06/13/24 HOLLIE-7 AMB Questionnaire HOLLIE-7 Date HOLLIE - 7 assessed: 06/13/24 Source: Developed by Drs. Tony Wilder, Noemy Olivares, Mario Alberto Whipple and colleagues, with an educational flor from [employer] Physical exam (Primary Care) Vital Signs: Last Vital Signs Temp 98 F 12/10/24 14:13 Pulse 96 12/10/24 14:13 Resp 18 12/10/24 14:13 BP 104/78 12/10/24 14:13 Pulse Ox 98 12/10/24 14:13 Oxygen Delivery Method Room Air 12/10/24 14:13 BMI result Body Mass Index 34.3 Tobacco/Smoking Status: Tobacco use Status Tobacco use date assessed 06/13/24 12/10/24 12:49 Patient Tobacco Use Status Never used Tobacco 12/10/24 12:49 Thrive Assessment: Date of Thrive Assessment Date Thrive assessed 06/13/24 12/10/24 12:49 Coding Level of Care Code Est Pt Level 4 (61126) Diagnoses Hypertension I10 Hypothyroidism E03.9 Type 1 diabetes E10.9 Polyarthralgia M25.50 Rupture of tendon of hip S76.019A Assessment & Plan Assessment & Plan (1) Hypertension: Code(s): I10 - Essential (primary) hypertension Category: Medical Plan: Hypertension controlled with blood pressure 110/82. No longer on antihypertensive therapy. Continue low-sodium diet. (2) Hypothyroidism: Code(s): E03.9 - Hypothyroidism, unspecified Category: Medical Plan: Euthyroid. Continue levothyroxine 50 mcg daily. Follow-up with endocrinology as scheduled (3) Type 1 diabetes: Code(s): E10.9 - Type 1 diabetes mellitus without complications Category: Medical Plan: Last hemoglobin A1c 7.9%, uncontrolled. Control improving however. Continue use of insulin pump and follow-up with endocrinology as scheduled. Diabetic eye exam up-to-date. Continue with diabetic diet. (4) Polyarthralgia: Code(s): M25.50 - Pain in unspecified joint Category: Medical Plan: Follow-up with rheumatology as scheduled. Continue Tylenol ibuprofen. Can continue gabapentin as well as diclofenac (5) Rupture of tendon of hip: Code(s): S76.019A - Strain of muscle, fascia and tendon of unspecified hip, initial encounter Category: Medical Plan: Improving. Continue with assistive device to prevent falls. Follow-up with orthopedics as scheduled and continue with physical therapy. Continue with gabapentin and diclofenac. As to reach out to the office if needing further assistance Plan Follow-up in the office in 6 months for annual physical exam
[2024-12-10 14:13] VITALS: BP 104/78; PULSE 96; RESP 18; TEMP 36.6; O2SAT 98; BMI 34.3
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
--- OUTSIDE RECORDS SUMMARY | 2024-12-10 17:13 | XMS_ITS | Patient Health Record ---
Author Organization [facility] Address [address] [place] [address] Care Team Providers Care Farm Management Agent Name Role Phone Ray Yoder MD Primary Care Provider Jeanette Jenny Casarez Unavailable [phone] Allergies Allergen (clinical drug ingredient) Drug/Non Drug [...] Status W/U Status Risk Notes Problem Bursitis (49859731) Bursitis (727.3) Active confirmed Problem Myositis (98224649) Myositis (729.1) Active confirmed Problem Pain in limb (14831159) Pain in Limb (729.5) Active confirmed Problem Plantar fasciitis (105894564) Plantar Fasciitis (728.71) Active confirmed Problem Calcaneal spur (16085967) Calcaneal spur (726.73) Active confirmed Plan Of Treatment Pending Test Test Name Order Date ,[id number] TENDON SHEATH/LIGAMENT 0 08/01/2011,[id number]-RJE TENDON SHEATH/LIGAMENT 0 08/16/2011 [id number]-[id number] 3mg 08/16/2011 Insurance Providers Payer Name Payer Address Payer Phone Subscriber Number Group Number Insured Name Patient Relationship to Insured Coverage Start Date Coverage End Date [facility] [address] [place] [address] [id number]IN Spouse - patient is the spouse of the insured Medical (General) History Medical History History ICD Code broken bones thyroid disorder chicken pox Surgical History Surgery Date(Month/Year) section 07/2000
== END 2024-12-10 14:39 | disposition home or self-care (01) ==
LOC: HO.HMCHD 14:00
PROVIDERS: PCP Physician Assistant; Visit Provider Physician Assistant
DX: I10 Essential (primary) hypertension (principal); E03.9 Hypothyroidism, unspecified; E10.9 Type 1 diabetes mellitus without complications; M25.50 Pain in unspecified joint; S76.019A Strain of muscle, fascia and tendon of unspecified hip, initial encounter

== ENCOUNTER 2024-12-23 14:00 | Outpatient (REF) | payer OTHER, SELFPAY ==
--- NOTE | ~2024-12-23 | XR_ITS ---
EXAMINATION: XR FOOT, RIGHT CLINICAL INFORMATION: M79.671 - Pain in right foot COMPARISON: None available. TECHNIQUE: AP, lateral, and oblique views of the right foot. FINDINGS: There is hallux valgus deformity. No other abnormalities are present. XR/XR foot RT min 3V IMPRESSION: Hallux valgus deformity. Electronically signed by: Mike Butler MD 12/23/2024 03:11 PM EST
== END 2024-12-23 14:01 | disposition home or self-care (01) ==
LOC: HO.XRAY 14:00
PROVIDERS: PCP Physician Assistant; Visit Provider Student in an Organized Health Care Education/Training Program
DX: M79.671 Pain in right foot (principal); E03.9 Hypothyroidism, unspecified; M25.50 Pain in unspecified joint; E10.9 Type 1 diabetes mellitus without complications; E03.8 Other specified hypothyroidism; S76.011D Strain of muscle, fascia and tendon of right hip, subsequent encounter; X58.XXXD Exposure to other specified factors, subsequent encounter; Z79.899 Other long term (current) drug therapy
CPT/HCPCS: 73630

== ENCOUNTER 2024-12-23 14:00 | Outpatient (AMB) | payer OTHER, SELFPAY ==
--- NOTE | 2024-12-23 14:09 | A.OFFPC_ITS ---
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 Required: No Accompanied by: son-Doug Allergies lisinopril Allergy (Intermediate, Verified 12/23/24 14:09) Swelling penicillin V Allergy (Unknown, Verified 12/23/24 14:09) Unknown Penicillins (PENICILLINS) Allergy (Unknown, Verified 12/23/24 14:09) RASH Sulfa (Sulfonamide Antibiotics) (SULFA(SULFONAMIDE ANTIBIOTICS)) Allergy (Unknown, Verified 12/23/24 14:09) NAUSEA AND VOMITING sulfur Allergy (Unknown, Verified 12/23/24 14:09) Unknown Medication List - Last Reconciled 12/23/24 by Kai Dean MD acetone (urine) test (Ketostix strips) As directed cetirizine (Zyrtec) 10 mg PO DAILY PRN cholecalciferol (vitamin D3) 50 mcg PO DAILY cyanocobalamin (vitamin B-12) 3,000 mcg PO DAILY diclofenac sodium 75 mg PO ONCE gabapentin 300 mg PO BEDTIME 30 days ibuprofen 800 mg PO BID PRN insulin lispro (Humalog U-100 Insulin) subcut levothyroxine (Tirosint) 50 mcg PO DAILY Tobacco use date assessed: 06/13/24 Dental Screening Dental Screen Date: 06/13/24 HPI HPI Comments History of Present Illness Details History of Present Illness The patient is a 54-year-old female presenting with right foot pain. She has been attending physical therapy for a torn right hip flexor and reports the sudden onset of pain in her right foot. She initially suspected a recurrence of plantar fasciitis, a condition she has not had issues with for 8-9 years, and started using her inserts again. However, the pain is localized to the inside of her foot rather than the bottom, where she previously experienced plantar fasciitis pain. The patient reports the pain is aggravated by weight-bearing and walking and can sometimes occur at night if she flexes or points her foot. She denies any specific trauma such as a fall or dropping an object on her foot prior to the pain onset, though she has fallen since due to the pain, without head injury or loss of consciousness. She has been using a cane more frequently due to the pain. Her medical history is notable for hypothyroidism, managed with levothyroxine 50 mcg. She also has diabetes, for which she uses an insulin pump, and chronic pain, managed with gabapentin. She reports attempting to reduce her gabapentin dosage from 300 mg to 100-200 mg but notes it has been effective for her pain. She has a follow-up with a framing specialist scheduled for March. Her last A1c in July was 7.7%, and her TSH was 2.13 in July. Medical History: - Torn right hip flexor - History of plantar fasciitis - Diabetes mellitus, managed with an ins ulin pump - Hypothyroidism - Chronic pain Medications: - Zyrtec, as needed - Vitamin D - B12 - Insulin, via pump - Gabapentin 300 mg once daily for pain, though patient is taking 100-200 mg - Levothyroxine 50 mcg for hypothyroidis m - Ibuprofen Diagnostic Results: - Last A1c was 7.7% in July. - Last TSH was 2.13 in July. Social History - Functional Status: Reports using a can e more frequently due to right foot pain. - Exercise: Currently attending physical therapy for a torn hip flexor. [facility] Medical History (Updated 12/23/24 @ 14:37 by Kai Dean MD) Right foot pain Hyperopia Vitreous floaters Type 1 diabetes Hypothyroidism Epidermal cyst Hypertension Surgical History H/O wrist surgery H/O section Family History (Updated 06/13/24 @ 16:21 by DARLENE Ortiz) Mother Thyroid disease Father No problems noted. Social History Housing: House Alcohol intake: current Patient Tobacco Use Status: Never used Tobacco service: No Current occupational status: employed Cognitive needs: No Hearing needs: No Vision needs: Yes (Rx glasses) Questionnaire Thrive Questionnaire Date Thrive assessed: 06/13/24 HOLLIE-7 AMB Questionnaire HOLLIE-7 Date HOLLIE - 7 assessed: 06/13/24 Source: Developed by Drs. Tony Wilder, Noemy Olivares, Mario Alberto Whipple and colleagues, with an educational flor from [employer]. Review of Systems Narrative Review of Systems - Musculoskeletal: Reports pain on the inside of the right foot, which is worse with walking and weight-bearing. - Neurological: Reports occasional foot pain at night with accidental flexion or pointing of the foot. - Denies antecedent trauma, calf pain, or pain on the bottom of the foot. All systems reviewed & are unremarkable except as reviewed in HPI and above Physical exam (Primary Care) Vital Signs: Last Vital Signs Temp 97.7 F 12/23/24 14:13 Pulse 86 12/23/24 14:13 Resp 18 12/23/24 14:13 BP 128/80 12/23/24 14:13 Pulse Ox 98 12/23/24 14:13 Oxygen Delivery Method Room Air 12/23/24 14:13 BMI result Body Mass Index 35.1 Tobacco/Smoking Status: Tobacco use Status Tobacco use date assessed 06/13/24 12/23/24 14:16 Patient Tobacco Use Status Never used Tobacco 12/23/24 14:16 Thrive Assessment: Date of Thrive Assessment Date Thrive assessed 06/13/24 12/23/24 14:16 Narrative Physical Exam General: +Alert and oriented, Well nourished, No acute distress. Eye: Pupils are equal, round and reactive to light, Intact accommodation, Extraocular movements are intact, Normal conjunctiva, Vision unchanged. HENT: Normocephalic, Atraumatic, Tympanic membranes are clear, Normal hearing, Oral mucosa is moist, No pharyngeal erythema, Ear canals patent. Respiratory: Lungs CTA bilaterally, No wheeze, Respirations are non-labored. Cardiovascular: Regular rate, Regular rhythm, S1 auscultated, S2 auscultated, No murmur, Good pulses equal in all extremities, Normal peripheral perfusion, No edema. Gastrointestinal: Soft, Non-tender, Non-distended, Normal bowel sounds, No organomegaly. Musculoskeletal: Normal range of motion, Normal strength, No tenderness, No swelling, No deformity, Normal gait. Right foot pain noted, likely soft tissue injury, no visible damage or tenderness on exam. Integumentary: Warm, Dry, [place], Intact. Neurologic: Alert, Oriented, Normal sensory, Normal motor function, No focal defects, Cranial Nerves II-XII are grossly intact, Normal deep tendon reflexes. Psychiatric: Cooperative, Appropriate mood & affect, Normal judgment. Coding Level of Care Code Est Pt Level 4 (20744) Complex EM visit Add On G2211 Diagnoses Right foot pain M79.671 Rupture of tendon of hip, right, subsequent encounter S76.011D Encounter type: subsequent encounter Laterality: right Polyarthralgia M25.50 Type 1 diabetes mellitus without complications E10.9 Diabetes mellitus complication status: without complication Other specified hypothyroidism E03.8 Hypothyroidism type: other Assessment & Plan Assessment & Plan (1) Right foot pain: Comment: - The etiology is unclear, but findings are not consistent with plantar fasciitis. - A soft tissue injury is suspected, while a fracture is considered less likely given the patient's moderate pain level. - The plan is to obtain an X-ray of the right foot, continue physical therapy, continue ibuprofen, and use ice for symptomatic relief. - An urgent referral to a supervisor multifocal lens will be placed for further evaluation. - The patient was advised to go to the emergency room if there are significant findings on the X-ray. Code(s): M79.671 - Pain in right foot Category: Medical (2) Rupture of tendon of hip: Comment: - The patient is currently attending physical therapy, which is described as a slow process. - The plan is to continue with physical therapy. Code(s): S76.019A - Strain of muscle, fascia and tendon of unspecified hip, initial encounter Category: Medical Qualifiers: Encounter type: subsequent encounter Laterality: right Qualified Code(s): S76.011D - Strain of muscle, fascia and tendon of right hip, subsequent encounter (3) Polyarthralgia: Comment: - The patient is managed on gabapentin, which she finds effective. - The plan includes continuing gabapentin and following up with her rheumatology appointment in March. Code(s): M25.50 - Pain in unspecified joint Category: Medical (4) Type 1 diabetes: Comment: - The patient is managed with an insulin pump. - Her last A1c was 7.7. - The plan is to continue current management and follow up with her primary care provider, Zahida, in June. Code(s): E10.9 - Type 1 diabetes mellitus without complications Category: Medical Qualifiers: Diabetes mellitus complication status: without complication Qualified Code(s): E10.9 - Type 1 diabetes mellitus without complications (5) Hypothyroidism: Comment: - This is managed with levothyroxine 50 mcg daily. - Her last TSH was 2.13, which is within the normal range. - The plan is to continue her current medication. Code(s): E03.9 - Hypothyroidism, unspecified Category: Medical Qualifiers: Hypothyroidism type: other Qualified Code(s): E03.8 - Other specified hypothyroidism Plan: Health Maintenance: - Follow-up with primary care provider, Zahida, is scheduled for June. - Follow-up with Rheumatology is scheduled for March. - An urgent referral to Podiatry has been placed for evaluation of right foot pain. Patient was informed and verbally consented to the use of an ambient scribe for clinic note documentation during this visit. Plan I discussed with the patient that her right foot pain is most likely a soft tissue injury, as the physical exam did not show signs of a fracture or plantar fasciitis. I explained that we would get an X-ray to be certain. I recommended she continue with physical therapy, use ibuprofen and ice as needed, and that I would place an urgent referral to a supervisor multifocal lens for further evaluation. I informed her that if the X-ray reveals a significant issue, I will call her and advise her to go to the emergency room. We briefly reviewed her chronic medications and conditions, and I confirmed her upcoming follow-up appointments with her primary care provider and rheumatology. Orders: Orders XR foot RT 2V Today M79.671 - Pain in right foot Referrals Podiatry Referral M79.671 - Pain in right foot Patient Instructions: - Please go for an X-ray of your right foot. - Continue with your physical therapy as scheduled. - You may take ibuprofen for pain and apply ice to the foot. - A referral has been made for you to see a trading specialist (supervisor multifocal lens). - We will call you if your X-ray shows anything serious that requires you to go to the emergency room. - Continue taking your daily medications as prescribed. - Your next follow-up with your regular doctor, Zahida, is in June.
[2024-12-23 14:13] VITALS: BP 128/80; PULSE 86; RESP 18; TEMP 36.5; O2SAT 98; BMI 35.1
--- OUTSIDE RECORDS SUMMARY | 2024-12-24 08:07 | XMS_ITS | Clinical Summary ---
Author Organization [facility] Address [address] [place] [address] Phone Care Team Providers Care Roustabout Crew Pusher Name Role Phone Ray Yoder MD Primary [...] (two) times a day. 60 tablet 2 11/19/2024 Active Hospital, Clinic, or Other Facility Administered [...] Description 12/10/2024 9:45 AM EST Office Visit [facility] [address] [place] [address]772 Alyse Tobar MD Strain of right iliopsoas muscle, initial encounter (Primary Dx); Pain 11/12/2024 Telephone [facility] [address] [place] [address] 134[address] Alyse Tobar MD Cert HCP 11/07/2024 10:15 AM EDT Office Visit [facility] [address] [place] [address] 15773 Alyse Tobar MD Strain of right iliopsoas muscle, initial encounter (Primary Dx) 10/17/2024 Ancillary Orders [facility],Outside Imaging [address] [place] [address] Unknown, MD Binta 10/17/2024 Ancillary Orders [facility],Outside Imaging [address] [place] [address] Unknown, MD Binta 10/10/2024 Telephone [facility] [address] [place] [address] Alyse Tobar MD waiting on records (Waiting on records) 10/10/2024 Orders Only [facility] [address] [place] [address] Provider, MD Jourdan 09/24/2024 - 09/24/2024 11:59 PM EDT Hospital Encounter [facility],Outside Imaging [address] [place] [address] Unknown, MD Binta Discharge Disposition: Home or [...] Upcoming Encounters Date Type Department Care Team ([facility] st Contact Info) Description 01/07/2025 9:30 AM EST Office Visit [facility] [address] [place] [address] Alyse Tobar MD [address] [place] [address] Orthopedics & Sports Medicine, [place] [address] Health Maintenance Due Date Last Done Comments [...] of 2) 12/15/2021 INFLUENZA VACCINE (#1) 2024 , 10/18/2016, 11/01/2015, Additional history exists COVID-19 VACCINE ( season) 2024 10/26/2021, 02/08/2021, 05/17/2020, Additional history exists RSV VACCINE (1 - 1-dose 75+ series) 12/15/2046 HEPATITIS A VACCINES Aged Out No long er eligible based on patient's age to complete this topic HIB VACCINES Aged Out No longer eligi ble based on patient's age to complete this topic IPV VACCINES Aged Out No longer eligi ble [...] HMO O O O O O O O [facility] HMO Care Teams Roustabout Crew Pusher Relationship Specialty Start Date End Date Ray Yoder MD [address] [place] [address] Dr [facility] [place] [address] PCP - General Internal Medicine 08/27/18 Additional Source Comments The information contained in this document represents components of the legal health record. It is not the complete legal health record.[facility]
--- OUTSIDE RECORDS SUMMARY | 2024-12-24 08:07 | XMS_ITS | Patient Health Record ---
Author Organization [facility] Address [address] [place] [address] Care Team Providers Care Cadet Deck Name Role Phone Ray Yoder MD Primary Care Provider Jeanette Jenny Casarez Unavailable [phone] Allergies Allergen (clinical drug ingredient) Drug/Non Drug [...] Status W/U Status Risk Notes Problem Bursitis (29816375) Bursitis (727.3) Active confirmed Problem Myositis (91356707) Myositis (729.1) Active confirmed Problem Pain in limb (60277987) Pain in Limb (729.5) Active confirmed Problem Plantar fasciitis (558564995) Plantar Fasciitis (728.71) Active confirmed Problem Calcaneal spur (75532135) Calcaneal spur (726.73) Active confirmed Plan Of Treatment Pending Test Test Name Order Date ,[id number] TENDON SHEATH/LIGAMENT 0 08/01/2011,[id number] TENDON SHEATH/LIGAMENT 0 08/16/2011 [id number] 3mg 08/16/2011 Insurance Providers Payer Name Payer Address Payer Phone Subscriber Number Group Number Insured Name Patient Relationship to Insured Coverage Start Date Coverage End Date [facility] [address] [place] [address] [id number] Spouse - patient is the spouse of the insured Medical (General) History Medical History History ICD Code broken bones thyroid disorder chicken pox Surgical History Surgery Date(Month/Year) section 07/2000
== END 2024-12-23 14:41 | disposition home or self-care (01) ==
LOC: HO.HMCHD 14:00
PROVIDERS: PCP Physician Assistant; Visit Provider Student in an Organized Health Care Education/Training Program
DX: M79.671 Pain in right foot (principal); S76.011D Strain of muscle, fascia and tendon of right hip, subsequent encounter; M25.50 Pain in unspecified joint; E10.9 Type 1 diabetes mellitus without complications; E03.8 Other specified hypothyroidism

== ENCOUNTER → 2024-12-23 14:40 | Outpatient (BNV) | payer OTHER, SELFPAY | PROVIDERS: PCP Physician Assistant; Visit Provider Radiology Diagnostic Radiology | DX: M20.11 Hallux valgus (acquired), right foot (principal) | CPT/HCPCS: 73630 ==

== ENCOUNTER 2025-01-05 07:43 | Outpatient (AMB) | payer OTHER, SELFPAY ==
--- OUTSIDE RECORDS SUMMARY | 2025-01-05 07:47 | XMS_ITS | Patient Health Record ---
Author Organization [facility] Address [address] [place] [address] Care Team Providers Care Procurement Inspector Name Role Phone Ray Yoder MD Primary Care Provider Jeanette Jenny Casarez Unavailable [phone] Allergies Allergen (clinical drug ingredient) Drug/Non Drug [...] Status W/U Status Risk Notes Problem Bursitis (84936734) Bursitis (727.3) Active confirmed Problem Myositis (37854978) Myositis (729.1) Active confirmed Problem Pain in limb (15940819) Pain in Limb (729.5) Active confirmed Problem Plantar fasciitis (930318359) Plantar Fasciitis (728.71) Active confirmed Problem Calcaneal spur (23660575) Calcaneal spur (726.73) Active confirmed Plan Of Treatment Pending Test Test Name Order Date ,[id number] TENDON SHEATH/LIGAMENT 0 08/01/2011,[id number] TENDON SHEATH/LIGAMENT 0 08/16/2011 [id number] 3mg 08/16/2011 Insurance Providers Payer Name Payer Address Payer Phone Subscriber Number Group Number Insured Name Patient Relationship to Insured Coverage Start Date Coverage End Date [facility] [address] [place] [address] [id number] Spouse - patient is the spouse of the insured Medical (General) History Medical History History ICD Code broken bones thyroid disorder chicken pox Surgical History Surgery Date(Month/Year) section 07/2000
--- OUTSIDE RECORDS SUMMARY | 2025-01-05 07:47 | XMS_ITS | Clinical Summary ---
Author Organization [facility] Address [address] [place] [address] Phone Care Team Providers Care Strap Stitcher Name Role Phone Ray Yoder MD Primary [...] Description 12/10/2024 9:45 AM EST Office Visit [facility] Medicine [address] [place] [address] Alyse Tobar MD Strain of right iliopsoas muscle, initial encounter (Primary Dx); Pain 11/12/2024 Telephone [facility] [address] [place] [address] Alyse Tobar MD Cert HCP 11/07/2024 10:15 AM EDT Office Visit [facility] [address] [place] [address] Alyse Tobar MD Strain of right iliopsoas muscle, initial encounter (Primary Dx) 10/17/2024 Ancillary Orders [facility],Outside Imaging [address] [place] [address] Unknown, Unknown, 10/17/2024 Ancillary Orders [facility],Outside Imaging [address] [place] [address] Unknown, Unknown, 10/10/2024 Telephone [facility] [address] [place] [phone] Alyse Tobar MD waiting on records (Waiting on records) 10/10/2024 Orders Only [facility] [address] [place] [address] Provider, MD Jourdan from Last 3 Months Social History Tobacco [...] Description 01/07/2025 9:30 AM EST Office Visit [facility] [address] [place] [address] Alyse Tobar MD [address] [place] [address] Orthopedics & Sports Medicine, [facility] [place] [address] [email or web address] Health Maintenance Due Date Last Done Comments [...] REPORT ONLY Routine 10/10/2024 1:08 PM EDT from Last 3 Months Results * Outside MR Extremity Upper Report Only (10/10/2024 1:08 PM EDT) Historical Provider MD RAY MR EXTREMITY Final Re sult from Last [address] Mon[address] [place] [address] [place] [address] [place] [address] [facility] H[facility] O O O Care Teams Strap Stitcher Relationship Specialty Start Date End Date Ray Yoder MD [address] [place] [address] [address] [place] [address] PCP - General Internal Medicine 08/27/18 Additional Source Comments The information contained in this document represents components of the legal health record. It is not the complete legal health record.[facility]
[2025-01-05 07:58] VITALS: BMI 33.2
--- NOTE | 2025-01-05 07:58 | A.OFFVIS_ITS ---
Vital Signs 01/05/25 07:58 Height 5 ft Weight 170 lb BMI 33.2 Intake Visit Reasons: right foot pain Intake Note: Kassidy is a 54 year old female who presents today as a new patient for an evaluation of her right foot pain. Pain is located on the medial aspect of the foot and she states the pain has been going on for about 3 weeks. She has tried inserts and found no relief however she has taken ibuprofen and has found slight relief for her symptoms. Patient PCP had ordered X rays and results is in patients chart. IMPRESSION: Hallux valgus deformity. Allergies lisinopril Allergy (Intermediate, Verified 12/23/24 14:09) Swelling penicillin V Allergy (Unknown, Verified 12/23/24 14:09) Unknown Penicillins (PENICILLINS) Allergy (Unknown, Verified 12/23/24 14:09) RASH Sulfa (Sulfonamide Antibiotics) (SULFA(SULFONAMIDE ANTIBIOTICS)) Allergy (Unknown, Verified 12/23/24 14:09) NAUSEA AND VOMITING sulfur Allergy (Unknown, Verified 12/23/24 14:09) Unknown HPI Comments Details: The patient is a 54-year-old individual With a past medical history as seen below presenting for evaluation of right foot pain. The patient describes the pain as an intermittent soreness located on the top of the foot in the 1st metatarsal area, and denies any specific inciting injury. She states she has been experiencing the pain recently for the past 2-3 weeks. Symptoms do not radiate to the remaining toes or ankle. The patient has a known bunion, which was confirmed on prior x-rays. Patient states she has tried wearing inserts, but states they worsened her pain. Patient states she also has tried wearing shoes with a wider toe box with some relief. The patient reports icing helps with the discomfort and takes diclofenac and ibuprofen as needed for pain, with some relief. The patient has a concurrent history of right-sided hip flexor weakness, for which the patient is undergoing rehabilitation. Due to this weakness and a tendency to fall, the patient uses a cane or a walker for ambulation. She denies any other pedal concerns. [facility] Medical History (Updated 01/06/25 @ 17:37 by Mary Mijares DPM) Metatarsalgia, right foot Acquired hammer toe of right foot Hallux valgus (acquired), right foot Right foot pain Hyperopia Vitreous floaters Type 1 diabetes Hypothyroidism Epidermal cyst Hypertension Surgical History H/O wrist surgery H/O section Family History (Updated 06/13/24 @ 16:21 by DARLENE Ortiz) Mother Thyroid disease Father No problems noted. Social History Housing: House Alcohol intake: current Patient Tobacco Use Status: Never used Tobacco service: No Current occupational status: employed Cognitive needs: No Hearing needs: No Vision needs: Yes (Rx glasses) Review of Systems Const Details: - Musculoskeletal: Reports intermittent soreness on the dorsal aspect of the right foot in the 1st metatarsal area. All systems reviewed & are unremarkable except as noted in HPI and below Physical Exam Vital Signs: BMI result Body Mass Index 33.2 Extrem Other: Right lower extremity focused physical exam: Derm: No open lesions abrasions or wounds noted. No ecchymosis, erythema, or discoloration noted. Skin supple and turgor within normal limits. Minimal edema noted to the medial prominence of the 1st metatarsal. No clinical signs of infection noted. Vascular: DP/PT pulses palpable. Capillary refill time less than 3 seconds. Temperature gradient warm to warm. Pedal hair absent. No varicosities noted. Neuro: Protective sensation is grossly intact. MSK: Pain on palpation to the 1st metatarsal dorsally along the neck and shaft. Tracking HAV noted. Pain with range of motion of the 1st MPJ. Range of motion of remaining toes within normal limits. No crepitus or fluctuance noted. No pain with hindfoot and ankle range of motion. Mildly antalgic gait noted unassisted. Results Reviewed Results Reviewed: Podiatry read of right foot x-ray (12/23/2024): Hallux valgus noted with 1st IM angle noted to be approximately 14 degrees. No acute fractures or dislocations noted. Mild hammertoe deformities noted. Right foot x-ray (12/23/2024): FINDINGS: There is hallux valgus deformity. No other abnormalities are present. IMPRESSION: Hallux valgus deformity. Assessment & Plan Assessment & Plan (1) Hallux valgus (acquired), right foot: Code(s): M20.11 - Hallux valgus (acquired), right foot Category: Medical (2) Acquired hammer toe of right foot: Code(s): M20.41 - Other hammer toe(s) (acquired), right foot Category: Medical (3) Metatarsalgia, right foot: Code(s): M77.41 - Metatarsalgia, right foot Category: Medical Plan Patient was informed and verbally consented to the use of an ambient scribe for clinic note documentation during this visit. I discussed with the patient that the pain in the right foot is likely stemming from the bunion deformity. We reviewed conservative treatment options, including the use of bunion sleeves for cushioning, modifying the placement of shoe inserts for better comfort, and the importance of supportive footwear. The patient will continue their current as-needed pain medication regimen, with the option to escalate to a prescription anti-inflammatory, meloxicam, if the pain does not improve. I explained that while surgery is the only way to definitively correct the bunion, we will start with these non-surgical treatments. We also discussed that an injection is not the first-line treatment in this case because the pain is not originating from within the joint. The patient was advised to follow this plan for a few weeks. - The patient was advised to obtain a bunion sleeve to provide cushioning and reduce rubbing from shoes. - The patient is to continue wearing shoe inserts but is instructed to place them underneath the shoe's sole to improve comfort while maintaining support. - For analgesia, the patient will continue taking diclofenac and ibuprofen as needed. - If the current medication regimen is not sufficient, a prescription for meloxicam can be provided. - An injection was considered but deferred at this time as the pain is located over the 1st metatarsal rather than within the joint. - The definitive option of surgery for the bunion was mentioned, but the current plan is to proceed with conservative management. - Supportive shoe gear is recommended, and walking barefoot should be avoided as it can irritate the area. - The patient was advised to try these conservative measures for a few weeks. RTC in 1 month Coding Level of Care Code New Pt Level 4 (35701) Diagnoses Hallux valgus (acquired), right foot M20.11 Acquired hammer toe of right foot M20.41 Metatarsalgia, right foot M77.41 Time Spent (min) 47
== END 2025-01-05 08:17 | disposition home or self-care (01) ==
LOC: HO.HPODS 07:44
PROVIDERS: PCP Physician Assistant; Visit Provider Student in an Organized Health Care Education/Training Program
DX: M20.11 Hallux valgus (acquired), right foot (principal); M20.41 Other hammer toe(s) (acquired), right foot; M77.41 Metatarsalgia, right foot
CPT/HCPCS: 99204